=== PATIENT | female | born 1970 | race Caucasian/White ===

== ENCOUNTER 2020-05-02 08:57 | Emergency (ER) | payer OTHER ==
[~2020-05-02] VITALS: Ht 160 cm; Wt 61.7 kg
[~2020-05-02 08:57] MED LIST: ASACOL HD800 MG PO
[2020-05-02] MEDS ORDERED: CIPRO500 MG PO (13:11)
== END 2020-05-02 14:14 | disposition home or self-care (01) ==
LOC: ER 08:57
DX: K62.5 Hemorrhage of anus and rectum (principal)

== ENCOUNTER 2021-09-29 13:12 | Inpatient (IN) | payer OTHER ==
[~2021-09-29] VITALS: Ht 160 cm; Wt 63.5 kg
[~2021-09-29 13:12] MED LIST changes: +CIPRO500 MG PO
--- NOTE | 2021-09-29 13:16 | NUR ---
SE RECIBE PTE ALERTA Y ORIENTADA X3, LA CUAL REFIERE TENER SANGRADO ANAL DESDE HOY
[2021-09-30] MEDS ORDERED: PANTOPRAZOLE SO40 MG (08:05)
== END 2021-10-03 12:02 | disposition home or self-care (01) | DRG 377 ==
LOC: ER 13:12 → MEDJ 23:36
PROVIDERS: ADMIT Internal Medicine; ATTEND Internal Medicine
PROC: BW21ZZZ Computerized Tomography (CT Scan) of Abdomen and Pelvis (ICD-10-PCS; 2021-09-29)
PROC: 4A12X4Z Monitoring of Cardiac Electrical Activity, External Approach (ICD-10-PCS; principal; 2021-09-30)
PROC: 8E0ZXY6 Isolation (ICD-10-PCS; 2021-09-30)
DX: K62.5 Hemorrhage of anus and rectum (principal); U07.1 COVID-19; K50.10 Crohn's disease of large intestine without complications; K52.89 Other specified noninfective gastroenteritis and colitis; R10.11 Right upper quadrant pain